=== PATIENT | male | born 1945 | race Caucasian/White ===

== ENCOUNTER 2023-12-23 10:41 | Outpatient (CLI) | payer OTHER ==
[2023-12-23] MEDS ORDERED: Iopamidol 300 61% 100 ML VIAL FS ONE (12:33)
== END 2023-12-23 10:42 | disposition home or self-care (01) ==
LOC: CSHCT 10:41
PROVIDERS: ATTEND Radiology Radiation Oncology
DX: C4A.4 Merkel cell carcinoma of scalp and neck (principal); L98.9 Disorder of the skin and subcutaneous tissue, unspecified
CPT/HCPCS: 70460; 70491; 71260; 82565; Q9967

== ENCOUNTER 2024-06-16 00:02 | Emergency (ER) | payer OTHER ==
[2024-06-17] MEDS ORDERED: Bacitracin 1 PK ONE (00:22)
[2024-06-17 01:07] LABS: Hematocrit 32.5 % (38.8-50.0); Mean Corpuscular HGB CONC 33.8 g/dL (32.0-36.0); Mean Corpuscular Hemoglobin 31.9 pg (27.0-33.0); Mean Corpuscular Volume 94.2 fL (81.2-95.1); Mean Platelet Volume 10.9 fL (7.4-10.4); Platelet Count 242 10x3/uL (150-450); RBC Distribution Width 14.2 % (11.5-14.5); Red Blood Cell (RBC) Count 3.45 10x6/uL (4.32-5.72); White Blood Cell (WBC) Count 8.3 10x3/uL (3.5-10.5)
[2024-06-17 01:15] LABS: ALT (SGPT) 10 U/L (8-55); AST (SGOT) 11 U/L (5-34); Albumin 2.8 g/dL (3.4-4.8); Alkaline Phosphatase 106 U/L (40-110); Anion Gap 13 mmol/L (10-20); BUN (Urea Nitrogen) 17 mg/dL (8.4-25.7); Bilirubin, Total 0.5 mg/dL (0.2-1.2); Calc. Creatinine Clearance 0 mL/min (70-130); Calcium 10.1 mg/dL (7.8-10.44); Carbon Dioxide 22 mmol/L (23-31); Chloride 105 mmol/L (98-107); Estimated GFR 49; Globulin 3.6 g/dL (2.4-3.5); Glucose 192 mg/dL (83-110); Potassium 4.2 mmol/L (3.5-5.1); Protein, Total 6.4 g/dL (5.8-8.1); Sodium 136 mmol/L (136-145)
[2024-06-17 01:35] LABS: Influenza A by NAA Not Detected (NotDetected); Influenza B by NAA Not Detected (NotDetected); SARS-CoV-2 NAA Rapid Test DETECTED (NotDetected)
[2024-06-17 01:37] LABS: Band 5 % (5-11); Lymphocytes 2 % (21-51); Monocytes 5 % (0-10); Neutrophil 88 % (42-75)
[2024-06-17 01:39] LABS: RBC Morph Comment Within Normal Limits
[2024-06-17 01:40] LABS: MDiff Complete? YES; Platelet Adequacy Comment Appears Adequate
[2024-06-17] MEDS ORDERED: Dexamethasone 10 MG/ML VIAL ONE (02:10)
== END 2024-06-17 03:32 | disposition home or self-care (01) ==
LOC: CSHERS 00:02
DX: U07.1 COVID-19 (principal); I10 Essential (primary) hypertension; E11.9 Type 2 diabetes mellitus without complications; Z79.84 Long term (current) use of oral hypoglycemic drugs
CPT/HCPCS: 70450; 71045; 72125; 80053; 85025; 93005; 96374; J1100